=== PATIENT | female | born 1980 | race Caucasian/White ===

== ENCOUNTER 2017-09-17 07:56 | Outpatient (CLI) | payer OTHER | END 2017-09-17 08:06 | disposition home or self-care (01) | LOC: RAD 07:56 | DX: J20.8 Acute bronchitis due to other specified organisms (principal); J45.901 Unspecified asthma with (acute) exacerbation; J45.909 Unspecified asthma, uncomplicated ==

== ENCOUNTER 2017-09-17 08:10 | Outpatient (CLI) | payer OTHER | END 2017-09-17 08:29 | disposition home or self-care (01) | LOC: LAB 08:10 | DX: L81.0 Postinflammatory hyperpigmentation (principal) ==

== ENCOUNTER 2017-10-09 07:23 | Outpatient (CLI) | payer OTHER | END 2017-10-09 08:59 | disposition home or self-care (01) | LOC: LAB 07:23 | DX: J45.998 Other asthma (principal) ==

== ENCOUNTER 2017-10-15 11:19 | Outpatient (CLI) | payer OTHER | END 2017-10-15 11:28 | disposition home or self-care (01) | LOC: LAB 11:19 | DX: N93.9 Abnormal uterine and vaginal bleeding, unspecified (principal); E34.8 Other specified endocrine disorders; B34.9 Viral infection, unspecified ==

== ENCOUNTER → 2017-11-22 10:19 | Outpatient (CLI) | payer OTHER | END | disposition home or self-care (01) | LOC: LAB 10:19 | DX: N92.5 Other specified irregular menstruation (principal) ==

== ENCOUNTER → 2017-11-22 10:21 | Outpatient (CLI) | payer OTHER | END | disposition home or self-care (01) | LOC: RAD 10:21 | DX: M54.89 Other dorsalgia (principal) ==

== ENCOUNTER 2017-12-22 10:01 | Outpatient (CLI) | payer OTHER | END 2017-12-22 10:07 | disposition home or self-care (01) | LOC: LAB 10:01 | DX: K51.011 Ulcerative (chronic) pancolitis with rectal bleeding (principal) ==

== ENCOUNTER 2017-12-24 07:40 | Outpatient (CLI) | payer OTHER | END 2017-12-24 07:51 | disposition home or self-care (01) | LOC: LAB 07:40 | DX: K51.011 Ulcerative (chronic) pancolitis with rectal bleeding (principal) ==

== ENCOUNTER 2020-04-10 08:53 | Outpatient (CLI) | payer OTHER | END 2020-04-10 09:05 | disposition home or self-care (01) | LOC: LAB 08:53 | PROVIDERS: ATTEND Obstetrics & Gynecology | DX: N39.0 Urinary tract infection, site not specified (principal); E16.1 Other hypoglycemia; E78.2 Mixed hyperlipidemia; E56.8 Deficiency of other vitamins; E55.9 Vitamin D deficiency, unspecified; E03.8 Other specified hypothyroidism; R97.1 Elevated cancer antigen 125 [CA 125]; R53.1 Weakness; E66.01 Morbid (severe) obesity due to excess calories; Z11.3 Encounter for screening for infections with a predominantly sexual mode of transmission; E11.65 Type 2 diabetes mellitus with hyperglycemia; D64.89 Other specified anemias ==

== ENCOUNTER 2020-04-30 08:15 | Outpatient (CLI) | payer OTHER | END 2020-04-30 08:29 | disposition home or self-care (01) | LOC: RAD 08:15 | DX: M54.89 Other dorsalgia (principal); M19.09 Primary osteoarthritis, other specified site ==

== ENCOUNTER 2020-07-29 08:01 | Outpatient (CLI) | payer OTHER | END 2020-07-29 08:15 | disposition home or self-care (01) | LOC: RAD 08:01 | DX: M54.2 Cervicalgia (principal); M54.5 Low back pain; M54.6 Pain in thoracic spine ==

== ENCOUNTER 2021-07-29 09:02 | Outpatient (CLI) | payer OTHER | END 2021-07-29 09:10 | disposition home or self-care (01) | LOC: RAD 09:02 | DX: R05.9 Cough, unspecified (principal); R06.00 Dyspnea, unspecified; J30.9 Allergic rhinitis, unspecified; J45.20 Mild intermittent asthma, uncomplicated ==